=== PATIENT | female | born 1965 | race Caucasian/White ===

== ENCOUNTER 2020-03-09 17:05 | Inpatient (IN) ==
[2020-03-09 18:19] LABS: Basophils # 0.1 K/mcL (0.0-0.2); Basophils % 0.5 %; Eosinophils # 0.3 K/mcL (0.0-0.6); Eosinophils % 1.7 %; Hematocrit 45.6 % (35.3-44.9); Hemoglobin 14.5 g/dL (11.5-15.4); Immature Granulocytes % 0.3 % (0-4); Lymphocytes # 3.9 K/mcL (0.6-4.6); Lymphocytes % 26.1 %; Mean Corpuscular HGB Conc 31.8 g/dL (31.6-35.5); Mean Corpuscular Hemoglobin 26.8 pg (28.0-33.3); Mean Corpuscular Volume 84.3 fL (83.0-100.0); Mean Platelet Volume 9.4 fL (9.4-12.4); Monocytes # 1.1 K/mcL (0.0-1.3); Monocytes % 7.3 %; Neutrophils # 9.6 K/mcL (1.6-8.9); Platelet Count 318 K/mcL (140-400); Red Blood Count 5.41 M/mcL (3.82-4.97); Segmented Neutrophils % 64.1 %
[2020-03-09 18:25] LABS: Prothrombin Time 11.5 Seconds (9.4-12.1)
[2020-03-09 18:27] LABS: Activated Partial Thrombo Time 26.5 Seconds (26.0-36.0)
[2020-03-09] MEDS ORDERED: Lurasidone 20 MG TABLET PO ONE (18:45)
[2020-03-09 18:56] LABS: BUN/Creatinine Ratio 15 (6-26); Blood Urea Nitrogen 10 mg/dL (6-20); C-Reactive Protein 88 mg/L (Less than 10); Carbon Dioxide 22 mEq/L (23-29); Chloride 102 mEq/L (98-107); Glucose 225 mg/dL (70-105); Osmolality,Calculated 282 (280-300); Sodium 133 mEq/L (136-145); Troponin I < 0.03 ng/mL (< 0.04); eGFR For African Americans > 60 (> 60); eGFR For Non-African Americans > 60 (> 60)
[2020-03-09] MEDS ORDERED: Dextrose Gel 15 GM/37.5 ML TUBE PO PRN ×2 (22:39)
[2020-03-09] MEDS ORDERED: D5% in Water 1,000 ML IVC PRN (22:39)
[2020-03-09] MEDS ORDERED: *HR* Dextrose 50 % in Water (Syg) 50 ML SYRINGE IVP PRN (22:39)
[2020-03-09] MEDS ORDERED: Naloxone 0.4 MG/ML INJ IVP PRN (22:39)
[2020-03-09] MEDS ORDERED: 0.9 % Sodium Chloride 1,000 ML IVC ONE (22:43)
[2020-03-09] MEDS ORDERED: Nicotine 2 MG GUM BC PRN (22:43)
[2020-03-09] MEDS ORDERED: 0.9 % Sodium Chloride 1,000 ML IVC SCH (22:45)
[2020-03-09] MEDS ORDERED: Vancomycin (wt based) 1,000 MG VIAL IVPB SCH (23:00)
[2020-03-09] MEDS: Piperacillin/Tazobactam 3.375 GM in 0.9 % Sodium Chloride Mini Bag 100 ML IVPB SCH (23:04)
[2020-03-09] MEDS: Nicotine 14 MG PATCH.TD24 TD SCH (23:06)
[2020-03-09] MEDS: Lurasidone 20 MG TABLET PO SCH (23:10)
[2020-03-09] MEDS: hydrOXYzine pamoate 25 MG CAPSULE PO SCH (23:56)
[2020-03-09] MEDS: Famotidine 20 MG TABLET PO SCH (23:56)
[2020-03-09] MEDS: traZODone 50 MG TABLET PO SCH (23:56)
[2020-03-09] MEDS: Lithium Carbonate 300 MG CAPSULE PO SCH (23:56)
[2020-03-09] MEDS: Insulin DETEMIR 100 UNIT/ML X5UNITS SQ SCH (23:57)
[2020-03-09] MEDS: Gabapentin 300 MG CAPSULE PO SCH (23:57)
[2020-03-09] MEDS: Vancomycin 1,250 MG/262.5 ML IV.SOLN IVPB SCH (23:57)
[2020-03-10] MEDS: Gabapentin 300 MG CAPSULE PO SCH ×3 (08:36→22:18)
[2020-03-10] MEDS: Famotidine 20 MG TABLET PO SCH ×2 (08:36→15:54)
[2020-03-10] MEDS: Nicotine 14 MG PATCH.TD24 TD SCH (08:36)
[2020-03-10] MEDS: hydrOXYzine pamoate 25 MG CAPSULE PO SCH ×3 (08:36→22:17)
[2020-03-10] MEDS: Lithium Carbonate 300 MG CAPSULE PO SCH ×2 (08:36→22:18)
[2020-03-10] MEDS: Piperacillin/Tazobactam 3.375 GM in 0.9 % Sodium Chloride Mini Bag 100 ML IVPB SCH ×2 (08:37→15:54)
[2020-03-10 09:47] LABS: Basophils # 0.1 K/mcL (0.0-0.2); Basophils % 0.6 %; Eosinophils # 0.3 K/mcL (0.0-0.6); Eosinophils % 2.7 %; Hemoglobin 13.3 g/dL (11.5-15.4); Immature Granulocytes % 0.5 % (0-4); Lymphocytes # 3.1 K/mcL (0.6-4.6); Mean Corpuscular HGB Conc 30.2 g/dL (31.6-35.5); Mean Corpuscular Volume 86.1 fL (83.0-100.0); Mean Platelet Volume 9.4 fL (9.4-12.4); Monocytes # 0.9 K/mcL (0.0-1.3); Monocytes % 7.4 %; Neutrophils # 7.9 K/mcL (1.6-8.9); Platelet Count 315 K/mcL (140-400); Red Blood Count 5.11 M/mcL (3.82-4.97); Segmented Neutrophils % 63.8 %; White Blood Count 12.4 K/mcL (4.3-11.1)
[2020-03-10 10:15] LABS: Alanine Aminotransferase 8 Units/L (7-52); Albumin 3.3 g/dL (3.5-5.7); Albumin/Globulin Ratio 1.1 (1.1-2.2); Alkaline Phosphatase 59 Units/L (34-104); Aspartate Amino Transferase 6 Units/L (13-39); BUN/Creatinine Ratio 17 (6-26); Bilirubin,Total 0.2 mg/dL (0.3-1.0); Blood Urea Nitrogen 11 mg/dL (6-20); Calcium 8.7 mg/dL (8.6-10.3); Carbon Dioxide 25 mEq/L (23-29); Chloride 107 mEq/L (98-107); Chol/HDL Ratio 4.7 (0-4.9); Cholesterol 93 mg/dL (< 200); Globulin 2.9 g/dL (2.4-3.5); Glucose 193 mg/dL (70-105); HDL Cholesterol 20 mg/dL (40-59); LDL Cholesterol,Calculated 35 mg/dL (0-99); Magnesium 1.8 mg/dL (1.6-2.6); Osmolality,Calculated 289 (280-300); Phosphorous 4.1 mg/dL (2.7-4.5); Sodium 137 mEq/L (136-145); Total Protein 6.2 g/dL (6.4-8.9); Triglycerides 190 mg/dL (< 150); Troponin I < 0.03 ng/mL (< 0.04); eGFR For African Americans > 60 (> 60); eGFR For Non-African Americans > 60 (> 60)
[2020-03-10] MEDS ORDERED: Dextrose Gel 15 GM/37.5 ML TUBE PO PRN ×2 (11:45)
[2020-03-10] MEDS ORDERED: *HR* Dextrose 50 % in Water (Syg) 50 ML SYRINGE IVP PRN (11:45)
[2020-03-10] MEDS ORDERED: D5% in Water 1,000 ML IVC PRN (11:45)
[2020-03-10] MEDS: Vancomycin 1,250 MG/262.5 ML IV.SOLN IVPB SCH ×2 (11:55→22:18)
[2020-03-10] MEDS: Insulin LISPRO 300 UNITS/3 ML VIAL SQ SCH ×2 (11:56→17:27)
[2020-03-10] MEDS ORDERED: Insulin DETEMIR 100 UNIT/ML X5UNITS SQ ONE (16:47)
[2020-03-10] MEDS: Lurasidone 20 MG TABLET PO SCH (17:27)
[2020-03-10] MEDS ORDERED: Insulin LISPRO 300 UNITS/3 ML VIAL SQ SCH ×2 (21:00→22:39)
[2020-03-10] MEDS: traZODone 50 MG TABLET PO SCH (22:17)
[2020-03-10] MEDS: Insulin DETEMIR 100 UNIT/ML X5UNITS SQ SCH (22:25)
[2020-03-10] MEDS: *HR* Heparin 5,000 UNIT/ML VIAL SQ SCH (22:29)
[2020-03-11] MEDS: Piperacillin/Tazobactam 3.375 GM in 0.9 % Sodium Chloride Mini Bag 100 ML IVPB SCH ×4 (00:01→23:23)
[2020-03-11 05:19] LABS: Hematocrit 43.3 % (35.3-44.9); Hemoglobin 13.8 g/dL (11.5-15.4); Mean Corpuscular HGB Conc 31.9 g/dL (31.6-35.5); Mean Corpuscular Hemoglobin 27.2 pg (28.0-33.3); Mean Corpuscular Volume 85.2 fL (83.0-100.0); Mean Platelet Volume 9.2 fL (9.4-12.4); Platelet Count 323 K/mcL (140-400); Red Blood Count 5.08 M/mcL (3.82-4.97); Red Cell Distribution Width 12.9 % (11.5-14.5); White Blood Count 13.5 K/mcL (4.3-11.1)
[2020-03-11 05:33] LABS: BUN/Creatinine Ratio 21 (6-26); Blood Urea Nitrogen 15 mg/dL (6-20); Calcium 9.1 mg/dL (8.6-10.3); Carbon Dioxide 28 mEq/L (23-29); Chloride 105 mEq/L (98-107); Glucose 199 mg/dL (70-105); Osmolality,Calculated 292 (280-300); Potassium 4.2 mEq/L (3.5-5.1); Sodium 138 mEq/L (136-145); eGFR For African Americans > 60 (> 60); eGFR For Non-African Americans > 60 (> 60)
[2020-03-11] MEDS: *HR* Heparin 5,000 UNIT/ML VIAL SQ SCH ×2 (05:58→17:01)
[2020-03-11 06:09] LABS: Estimated Average Glucose 194 mg/dl
[2020-03-11] MEDS: hydrOXYzine pamoate 25 MG CAPSULE PO SCH ×3 (08:19→23:17)
[2020-03-11] MEDS: Lithium Carbonate 300 MG CAPSULE PO SCH ×2 (08:20→23:17)
[2020-03-11] MEDS: Famotidine 20 MG TABLET PO SCH ×2 (08:20→15:12)
[2020-03-11] MEDS: Gabapentin 300 MG CAPSULE PO SCH ×3 (08:21→23:17)
[2020-03-11] MEDS: Nicotine 14 MG PATCH.TD24 TD SCH (08:21)
[2020-03-11] MEDS: Insulin LISPRO 300 UNITS/3 ML VIAL SQ SCH ×3 (08:24→16:57)
[2020-03-11] MEDS: 0.9 % Sodium Chloride 1,000 ML IVC SCH ×2 (09:06→23:19)
[2020-03-11 11:24] LABS: Bilirubin,Urine Negative (Negative); Blood,Urine Negative (Negative); Clarity,Urine Clear (Clear); Color,Urine Yellow (Yellow); Glucose,Urine (UA) >=1000 mg/dL (Normal); Ketones,Urine Negative (Negative); Leukocyte Esterase,Urine Negative (Negative); Nitrite,Urine Negative (Negative); Protein,Urine Negative (Neg-Trace); Specific Gravity,Urine 1.024 (1.010-1.025); Urobilinogen,Urine Normal (Normal)
[2020-03-11] MEDS: Vancomycin 1,500 MG/265 ML IV.SOLN IVPB SCH ×2 (11:52→23:18)
[2020-03-11] MEDS ORDERED: Insulin LISPRO 300 UNITS/3 ML VIAL SQ SCH (13:46)
[2020-03-11] MEDS: Lurasidone 20 MG TABLET PO SCH (17:00)
[2020-03-11] MEDS ORDERED: Insulin DETEMIR 100 UNIT/ML X5UNITS SQ SCH (21:00)
[2020-03-11] MEDS: traZODone 50 MG TABLET PO SCH (23:17)
[2020-03-12 00:58] LABS: Basophils # 0.1 K/mcL (0.0-0.2); Basophils % 0.8 %; Eosinophils # 0.4 K/mcL (0.0-0.6); Eosinophils % 2.8 %; Hemoglobin 12.8 g/dL (11.5-15.4); Immature Granulocytes % 0.4 % (0-4); Lymphocytes # 4.1 K/mcL (0.6-4.6); Mean Corpuscular HGB Conc 30.5 g/dL (31.6-35.5); Mean Corpuscular Hemoglobin 25.8 pg (28.0-33.3); Mean Corpuscular Volume 84.7 fL (83.0-100.0); Mean Platelet Volume 9.2 fL (9.4-12.4); Monocytes # 0.7 K/mcL (0.0-1.3); Monocytes % 5.1 %; Neutrophils # 8.7 K/mcL (1.6-8.9); Platelet Count 299 K/mcL (140-400); Red Blood Count 4.96 M/mcL (3.82-4.97); Red Cell Distribution Width 12.8 % (11.5-14.5); Segmented Neutrophils % 61.9 %; White Blood Count 14.1 K/mcL (4.3-11.1)
[2020-03-12 01:20] LABS: BUN/Creatinine Ratio 23 (6-26); Blood Urea Nitrogen 15 mg/dL (6-20); Calcium 8.5 mg/dL (8.6-10.3); Carbon Dioxide 24 mEq/L (23-29); Chloride 103 mEq/L (98-107); Glucose 243 mg/dL (70-105); Osmolality,Calculated 289 (280-300); Sodium 135 mEq/L (136-145); eGFR For African Americans > 60 (> 60); eGFR For Non-African Americans > 60 (> 60)
[2020-03-12 01:40] LABS: Platelet Estimate Normal (Normal); Reactive Lymphocytes Present (Not Present)
[2020-03-12] MEDS: *HR* Heparin 5,000 UNIT/ML VIAL SQ SCH ×2 (04:36→16:27)
[2020-03-12] MEDS ORDERED: Lidocaine -MPF 2% 2 ML VIAL ONE (07:19)
[2020-03-12] MEDS: Insulin LISPRO 300 UNITS/3 ML VIAL SQ SCH ×6 (07:37→20:36)
[2020-03-12] MEDS: Famotidine 20 MG TABLET PO SCH ×2 (07:38→16:25)
[2020-03-12] MEDS: Lithium Carbonate 300 MG CAPSULE PO SCH ×2 (07:38→20:32)
[2020-03-12] MEDS: Gabapentin 300 MG CAPSULE PO SCH ×3 (07:40→20:33)
[2020-03-12] MEDS: hydrOXYzine pamoate 25 MG CAPSULE PO SCH ×3 (07:40→20:32)
[2020-03-12] MEDS: Nicotine 14 MG PATCH.TD24 TD SCH (07:41)
[2020-03-12] MEDS: Piperacillin/Tazobactam 3.375 GM in 0.9 % Sodium Chloride Mini Bag 100 ML IVPB SCH ×3 (07:41→16:25)
[2020-03-12] MEDS ORDERED: Bupivacaine/Clonidine Syringe 20 ML, Syringe LUER-LOK 1 EACH TP ONE ×2 (07:45→09:15)
[2020-03-12] MEDS ORDERED: *HR* Midazolam HCl 2 MG/2 ML VIAL ONE (07:46)
[2020-03-12] MEDS ORDERED: EPHEDrine 50 MG/ML VIAL ONE (08:36)
[2020-03-12] MEDS ORDERED: Nicotine 2 MG GUM BC PRN (09:15)
[2020-03-12] MEDS ORDERED: Dextrose Gel 15 GM/37.5 ML TUBE PO PRN ×2 (09:15)
[2020-03-12] MEDS ORDERED: *HR* Dextrose 50 % in Water (Syg) 50 ML SYRINGE IVP PRN (09:15)
[2020-03-12] MEDS ORDERED: Naloxone 0.4 MG/ML INJ IVP PRN (09:15)
[2020-03-12] MEDS ORDERED: D5% in Water 1,000 ML IVC PRN (09:15)
[2020-03-12] MEDS: 0.9 % Sodium Chloride 1,000 ML IVC SCH ×2 (10:00→22:48)
[2020-03-12] MEDS: Insulin DETEMIR 100 UNIT/ML X5UNITS SQ SCH (12:03)
[2020-03-12] MEDS: Vancomycin 1,500 MG/265 ML IV.SOLN IVPB SCH (12:04)
[2020-03-12] MEDS: Lurasidone 20 MG TABLET PO SCH (16:24)
[2020-03-12] MEDS: traZODone 50 MG TABLET PO SCH (20:32)
[2020-03-12] MEDS: *HR* OxyCODONE/APAP 5/325 TABLET PO PRN (20:33)
[2020-03-12] MEDS ORDERED: Insulin DETEMIR 100 UNIT/ML X5UNITS SQ SCH (21:00)
[2020-03-13] MEDS: Vancomycin 1,500 MG/265 ML IV.SOLN IVPB SCH (00:04)
[2020-03-13] MEDS: Piperacillin/Tazobactam 3.375 GM in 0.9 % Sodium Chloride Mini Bag 100 ML IVPB SCH ×4 (00:05→23:29)
[2020-03-13] MEDS: *HR* OxyCODONE/APAP 5/325 TABLET PO PRN ×3 (03:38→20:15)
[2020-03-13] MEDS: *HR* Heparin 5,000 UNIT/ML VIAL SQ SCH ×2 (05:32→17:15)
[2020-03-13 05:47] LABS: Basophils # 0.1 K/mcL (0.0-0.2); Basophils % 0.7 %; Eosinophils # 0.3 K/mcL (0.0-0.6); Eosinophils % 2.9 %; Hematocrit 41.3 % (35.3-44.9); Hemoglobin 12.6 g/dL (11.5-15.4); Immature Granulocytes % 0.3 % (0-4); Lymphocytes # 3.5 K/mcL (0.6-4.6); Lymphocytes % 30.1 %; Mean Corpuscular HGB Conc 30.5 g/dL (31.6-35.5); Mean Corpuscular Volume 85.3 fL (83.0-100.0); Mean Platelet Volume 9.3 fL (9.4-12.4); Monocytes # 0.7 K/mcL (0.0-1.3); Monocytes % 6.1 %; Platelet Count 305 K/mcL (140-400); Red Blood Count 4.84 M/mcL (3.82-4.97); Red Cell Distribution Width 12.8 % (11.5-14.5); Segmented Neutrophils % 59.9 %; White Blood Count 11.6 K/mcL (4.3-11.1)
[2020-03-13 06:00] LABS: BUN/Creatinine Ratio 19 (6-26); Blood Urea Nitrogen 14 mg/dL (6-20); Calcium 8.8 mg/dL (8.6-10.3); Carbon Dioxide 30 mEq/L (23-29); Chloride 103 mEq/L (98-107); Glucose 274 mg/dL (70-105); Osmolality,Calculated 294 (280-300); Potassium 4.5 mEq/L (3.5-5.1); Sodium 137 mEq/L (136-145); eGFR For African Americans > 60 (> 60); eGFR For Non-African Americans > 60 (> 60)
[2020-03-13] MEDS: Gabapentin 300 MG CAPSULE PO SCH ×3 (07:29→20:12)
[2020-03-13] MEDS: Lithium Carbonate 300 MG CAPSULE PO SCH ×2 (07:29→20:11)
[2020-03-13] MEDS: Insulin LISPRO 300 UNITS/3 ML VIAL SQ SCH ×7 (07:30→20:14)
[2020-03-13] MEDS: hydrOXYzine pamoate 25 MG CAPSULE PO SCH ×3 (07:30→20:12)
[2020-03-13] MEDS: Famotidine 20 MG TABLET PO SCH ×2 (07:30→17:15)
[2020-03-13] MEDS: Nicotine 14 MG PATCH.TD24 TD SCH (07:34)
[2020-03-13] MEDS: Insulin DETEMIR 100 UNIT/ML X5UNITS SQ SCH ×2 (07:56→20:13)
[2020-03-13] MEDS ORDERED: Insulin DETEMIR 100 UNIT/ML X5UNITS SQ ONE (10:06)
[2020-03-13] MEDS ORDERED: Aminoglycoside Consult 1 EACH MC ONE (10:58)
[2020-03-13] MEDS: Vancomycin 1,750 MG/517.5 ML IV.SOLN IVPB SCH ×2 (12:17→23:30)
[2020-03-13] MEDS: 0.9 % Sodium Chloride 1,000 ML IVC SCH (12:17)
[2020-03-13] MEDS: Lurasidone 20 MG TABLET PO SCH (17:15)
[2020-03-13] MEDS: traZODone 50 MG TABLET PO SCH (20:12)
[2020-03-13] MEDS: *HR* OxyCODONE Immed Rel 5 MG TABLET PO PRN (23:52)
[2020-03-14] MEDS: *HR* OxyCODONE/APAP 5/325 TABLET PO PRN ×4 (02:15→20:27)
[2020-03-14] MEDS: *HR* Heparin 5,000 UNIT/ML VIAL SQ SCH ×2 (05:40→17:45)
[2020-03-14 06:27] LABS: Basophils # 0.1 K/mcL (0.0-0.2); Basophils % 0.9 %; Eosinophils # 0.3 K/mcL (0.0-0.6); Eosinophils % 3.3 %; Hematocrit 42.5 % (35.3-44.9); Immature Granulocytes % 0.7 % (0-4); Lymphocytes # 3.3 K/mcL (0.6-4.6); Lymphocytes % 33.3 %; Mean Corpuscular HGB Conc 30.6 g/dL (31.6-35.5); Mean Platelet Volume 9.2 fL (9.4-12.4); Monocytes # 0.6 K/mcL (0.0-1.3); Monocytes % 5.7 %; Neutrophils # 5.6 K/mcL (1.6-8.9); Platelet Count 296 K/mcL (140-400); Red Cell Distribution Width 13.1 % (11.5-14.5); Segmented Neutrophils % 56.1 %
[2020-03-14 06:45] LABS: BUN/Creatinine Ratio 23 (6-26); Blood Urea Nitrogen 15 mg/dL (6-20); Carbon Dioxide 28 mEq/L (23-29); Chloride 103 mEq/L (98-107); Glucose 252 mg/dL (70-105); Osmolality,Calculated 289 (280-300); Potassium 4.4 mEq/L (3.5-5.1); Sodium 135 mEq/L (136-145); eGFR For African Americans > 60 (> 60); eGFR For Non-African Americans > 60 (> 60)
[2020-03-14] MEDS: Piperacillin/Tazobactam 3.375 GM in 0.9 % Sodium Chloride Mini Bag 100 ML IVPB SCH ×2 (08:01→17:46)
[2020-03-14] MEDS: Insulin DETEMIR 100 UNIT/ML X5UNITS SQ SCH ×2 (08:02→20:26)
[2020-03-14] MEDS: Lithium Carbonate 300 MG CAPSULE PO SCH ×2 (08:03→22:22)
[2020-03-14] MEDS: Gabapentin 300 MG CAPSULE PO SCH ×3 (08:03→22:22)
[2020-03-14] MEDS: Famotidine 20 MG TABLET PO SCH ×2 (08:03→17:45)
[2020-03-14] MEDS: Nicotine 14 MG PATCH.TD24 TD SCH (08:04)
[2020-03-14] MEDS: hydrOXYzine pamoate 25 MG CAPSULE PO SCH ×3 (08:04→22:22)
[2020-03-14] MEDS: Insulin LISPRO 300 UNITS/3 ML VIAL SQ SCH ×7 (08:05→20:25)
[2020-03-14] MEDS: Nystatin Cream 15 GM TUBE TP SCH ×2 (11:46→20:24)
[2020-03-14] MEDS: Vancomycin 1,750 MG/517.5 ML IV.SOLN IVPB SCH (12:20)
[2020-03-14] MEDS: Clotrimazole/Betameth Dip CRM 45 APPL/45 GM TUBE TP SCH ×2 (13:33→20:24)
[2020-03-14] MEDS: Lurasidone 20 MG TABLET PO SCH (17:45)
[2020-03-14] MEDS: traZODone 50 MG TABLET PO SCH (22:22)
[2020-03-15] MEDS: Piperacillin/Tazobactam 3.375 GM in 0.9 % Sodium Chloride Mini Bag 100 ML IVPB SCH ×2 (01:38→07:27)
[2020-03-15] MEDS: *HR* OxyCODONE/APAP 5/325 TABLET PO PRN (02:53)
[2020-03-15] MEDS: *HR* Heparin 5,000 UNIT/ML VIAL SQ SCH (05:26)
[2020-03-15 06:50] LABS: Basophils # 0.1 K/mcL (0.0-0.2); Basophils % 0.9 %; Eosinophils # 0.4 K/mcL (0.0-0.6); Eosinophils % 3.9 %; Hematocrit 43.3 % (35.3-44.9); Hemoglobin 13.3 g/dL (11.5-15.4); Immature Granulocytes % 0.4 % (0-4); Lymphocytes # 3.3 K/mcL (0.6-4.6); Lymphocytes % 32.9 %; Mean Corpuscular HGB Conc 30.7 g/dL (31.6-35.5); Mean Corpuscular Hemoglobin 25.9 pg (28.0-33.3); Mean Corpuscular Volume 84.4 fL (83.0-100.0); Mean Platelet Volume 9.2 fL (9.4-12.4); Monocytes # 0.6 K/mcL (0.0-1.3); Monocytes % 5.9 %; Neutrophils # 5.6 K/mcL (1.6-8.9); Platelet Count 323 K/mcL (140-400); Red Blood Count 5.13 M/mcL (3.82-4.97); Red Cell Distribution Width 13.1 % (11.5-14.5)
[2020-03-15 07:09] VITALS: BP 134/72
[2020-03-15 07:11] LABS: BUN/Creatinine Ratio 21 (6-26); Blood Urea Nitrogen 17 mg/dL (6-20); Calcium 9.5 mg/dL (8.6-10.3); Carbon Dioxide 27 mEq/L (23-29); Chloride 99 mEq/L (98-107); Glucose 311 mg/dL (70-105); Osmolality,Calculated 289 (280-300); Potassium 4.2 mEq/L (3.5-5.1); Sodium 133 mEq/L (136-145); eGFR For African Americans > 60 (> 60); eGFR For Non-African Americans > 60 (> 60)
[2020-03-15] MEDS: *HR* OxyCODONE Immed Rel 5 MG TABLET PO PRN (07:28)
[2020-03-15] MEDS: Gabapentin 300 MG CAPSULE PO SCH (07:28)
[2020-03-15] MEDS: Lithium Carbonate 300 MG CAPSULE PO SCH (07:28)
[2020-03-15] MEDS: hydrOXYzine pamoate 25 MG CAPSULE PO SCH (07:29)
[2020-03-15] MEDS: Clotrimazole/Betameth Dip CRM 45 APPL/45 GM TUBE TP SCH (07:29)
[2020-03-15] MEDS: Famotidine 20 MG TABLET PO SCH (07:29)
[2020-03-15] MEDS: Nystatin Cream 15 GM TUBE TP SCH (07:31)
[2020-03-15] MEDS: Insulin DETEMIR 100 UNIT/ML X5UNITS SQ SCH (09:15)
[2020-03-15] MEDS: Insulin LISPRO 300 UNITS/3 ML VIAL SQ SCH ×2 (09:16→09:17)
[2020-03-15] MEDS: Nicotine 14 MG PATCH.TD24 TD SCH (09:46)
== END 2020-03-15 10:59 | disposition home or self-care (01) | DRG 710 ==
LOC: EMEROOARM 17:05 → 3NENU 17:05 → SUATTDRO 19:23 → 3NENU 19:42 → SUATTDRO 03-11 13:24
PROVIDERS: ADMIT Internal Medicine; ATTEND Family Medicine